=== PATIENT | female | born 1985 | race Caucasian/White ===

== ENCOUNTER 2021-04-25 03:50 | Inpatient (IN) | payer OTHER ==
[2021-04-25] MEDS ORDERED: ELECTROLYTE-148 SOLN 500 ML IV ONE (05:30)
[2021-04-25] MEDS ORDERED: CITRIC ACID/SODIUM CITRATE 30 ML UNIT-DOSE CUP PO ONE (05:30)
[2021-04-25 06:06] LABS: BASO % 0.2 % (0-2.0); EOS % 0.7 % (0-4.5); HEMATOCRIT 33.2 % (32.4-45.2); HEMOGLOBIN 11.3 GM/dL (10.7-15.3); LYMPH % 17.7 % (8-40); MCH 31.5 pg (25.7-33.7); MEAN CELL VOLUME 92.6 fl (80-96); MEAN PLT VOLUME 9.7 fl (7.5-11.1); NEUT % 76.4 % (42.8-82.8); PLATELET COUNT 212 10^3/uL (134-434); RBC 3.59 M/mm3 (3.60-5.2); RDW 13.1 % (11.6-15.6); WHITE BLOOD COUNT 11.6 K/mm3 (4.0-10.0)
[2021-04-25] MEDS ORDERED: OXYTOCIN 20 UNITS in 0.9% NS 20 UNIT/1,000 ML INFUS.BAG IV ONE (06:10)
[2021-04-25] MEDS ORDERED: ceFAZolin SODIUM 1 GM VIAL ONE (06:10)
[2021-04-25] MEDS ORDERED: OXYTOCIN 10 UNITS/ML VIAL ONE (06:11)
[2021-04-25] MEDS ORDERED: morphine SULFATE/PF 1 MG/2 ML (2cc Syringe - QUVA) ONE (06:11)
[2021-04-25] MEDS ORDERED: KETOROLAC TROMETHAMINE 30 MG/1 ML VIAL ONE (06:11)
[2021-04-25] MEDS ORDERED: PHENYLEPHRINE HCL 10 MG/1 ML SINGLE DOSE VIAL ONE (06:12)
[2021-04-25 06:13] LABS: INR 0.86 (0.83-1.09); PROTHROMBIN TIME (PATIENT) 9.9 SEC (9.7-13.0)
[2021-04-25 06:15] LABS: ACTIVATED PTT 25.3 SECONDS (25.2-36.5)
[2021-04-25 06:27] LABS: CALCIUM 8.1 mg/dL (8.5-10.1)
[2021-04-25 06:28] LABS: BLOOD UREA NITROGEN 16.8 mg/dL (7-18)
[2021-04-25 06:32] LABS: CREATININE 0.6 mg/dL (0.55-1.3)
[2021-04-25 06:58] VITALS: BMI 25.8
[2021-04-25] MEDS ORDERED: ONDANSETRON 4 MG/2 ML VIAL IVPUSH PRN (07:35)
[2021-04-25 07:38] LABS: CORD HCO3 24.4 mmHg (20-29); CORD PCO2 47.3 mmHg (30-78); CORD pH 7.331 (7.14-7.44)
[2021-04-25 07:38] LABS: HIV INTERPRETATION NEGATIVE (NEGATIVE)
[2021-04-25 07:41] LABS: CORD HCO3 23.9 mmHg (20-29); CORD PCO2 52.8 mmHg (30-78); CORD pH 7.274 (7.14-7.44)
[2021-04-25] MEDS ORDERED: BENZOCAINE 28 GM HEMORRHOIDAL OINTMENT TP PRN (07:49)
[2021-04-25] MEDS ORDERED: ACETAMINOPHEN 325 MG TABLET (FP) PO PRN (07:49)
[2021-04-25] MEDS ORDERED: METHYLERGONOVINE MALEATE 0.2 MG/1 ML AMP IM PRN (07:49)
[2021-04-25] MEDS ORDERED: SENNOSIDES/DOCUSATE COMBO (SENNA PLUS) TABLET (UD) PO PRN (07:49)
[2021-04-25] MEDS ORDERED: BENZOCAINE 20% 57 GM BOTTLE TP PRN (07:49)
[2021-04-25] MEDS: ELECTROLYTE-148 SOLN 1,000 ML IV SCH (09:04)
[2021-04-25] MEDS ORDERED: IBUPROFEN 800 MG/8 ML IJ IVPB ONE (09:08)
[2021-04-25] MEDS: IBUPROFEN 800 MG/8 ML IJ IVPB PRN (09:15)
[2021-04-25] MEDS: OXYTOCIN 20 UNITS in 0.9% NS 20 UNIT/1,000 ML INFUS.BAG IV SCH ×2 (13:15→19:00)
[2021-04-25] MEDS: IBUPROFEN 600 MG TABLET (FP) PO PRN (17:06)
[2021-04-25] MEDS ORDERED: oxyCODONE HCL 5 MG TABLET PO PRN ×2 (19:49)
[2021-04-26] MEDS: IBUPROFEN 800 MG/8 ML IJ IVPB PRN (00:36)
[2021-04-26] MEDS: IBUPROFEN 600 MG TABLET (FP) PO PRN ×2 (00:51→20:10)
[2021-04-26] MEDS: SIMETHICONE 80 MG TAB.CHEW (FP) PO PRN (00:51)
[2021-04-26] MEDS: LEVOTHYROXINE NA 112 MCG TABLET (FP) PO SCH (06:23)
[2021-04-26] MEDS ORDERED: BISACODYL 10 MG SUPP.RECT RC PRN (07:49)
[2021-04-26 09:25] LABS: BASO % 0.4 % (0-2.0); EOS % 1.4 % (0-4.5); HEMATOCRIT 30.7 % (32.4-45.2); HEMOGLOBIN 10.6 GM/dL (10.7-15.3); LYMPH % 13.3 % (8-40); MCH 32.4 pg (25.7-33.7); MCHC 34.6 g/dl (32.0-36.0); MEAN CELL VOLUME 93.7 fl (80-96); MEAN PLT VOLUME 8.9 fl (7.5-11.1); MONO % 3.3 % (3.8-10.2); NEUT % 81.6 % (42.8-82.8); PLATELET COUNT 190 10^3/uL (134-434); RBC 3.28 M/mm3 (3.60-5.2); RDW 13.1 % (11.6-15.6); WHITE BLOOD COUNT 9.8 K/mm3 (4.0-10.0)
[2021-04-27] MEDS: LEVOTHYROXINE NA 112 MCG TABLET (FP) PO SCH (06:44)
[2021-04-27] MEDS: IBUPROFEN 600 MG TABLET (FP) PO PRN ×2 (11:01→20:11)
[2021-04-27] MEDS: SIMETHICONE 80 MG TAB.CHEW (FP) PO PRN ×2 (11:02→20:12)
[2021-04-28] MEDS: LEVOTHYROXINE NA 112 MCG TABLET (FP) PO SCH (06:33)
[2021-04-28] MEDS: ELECTROLYTE-148 SOLN 1,000 ML IV SCH (07:11)
[2021-04-28 07:19] LABS: BASO % 0.4 % (0-2.0); EOS % 3.5 % (0-4.5); HEMATOCRIT 29.8 % (32.4-45.2); HEMOGLOBIN 10.1 GM/dL (10.7-15.3); LYMPH % 27.5 % (8-40); MCH 32.2 pg (25.7-33.7); MCHC 34.1 g/dl (32.0-36.0); MEAN CELL VOLUME 94.7 fl (80-96); MEAN PLT VOLUME 8.8 fl (7.5-11.1); MONO % 5.3 % (3.8-10.2); NEUT % 63.3 % (42.8-82.8); PLATELET COUNT 206 10^3/uL (134-434); RBC 3.14 M/mm3 (3.60-5.2); RDW 13.3 % (11.6-15.6); WHITE BLOOD COUNT 7.9 K/mm3 (4.0-10.0)
[2021-04-28 09:13] VITALS: BP 113/71; PULSE 73; TEMP 97.3
[2021-04-28] MEDS: IBUPROFEN 600 MG TABLET (FP) PO PRN (09:24)
[2021-04-28] MEDS: SIMETHICONE 80 MG TAB.CHEW (FP) PO PRN (09:24)
== END 2021-04-28 13:25 | disposition home or self-care (01) | DRG 785 ==
LOC: JDEL 03:50 → JLDR 05:13 → J3W 09:35
PROVIDERS: ADMIT Obstetrics & Gynecology; ATTEND Obstetrics & Gynecology
PROC: 10D00Z1 Extraction of Products of Conception, Low, Open Approach (ICD-10-PCS; principal; 2021-04-25)
PROC: 0UB50ZZ Excision of Right Fallopian Tube, Open Approach (ICD-10-PCS; 2021-04-25)
DX: O82 Encounter for cesarean delivery without indication (principal); N83.8 Other noninflammatory disorders of ovary, fallopian tube and broad ligament; O99.284 Endocrine, nutritional and metabolic diseases complicating childbirth; E03.9 Hypothyroidism, unspecified; Z3A.37 37 weeks gestation of pregnancy; Z37.0 Single live birth
CPT/HCPCS: 36415; 36600; 80048; 82803; 85025; 85610; 85730; 86780; 86850; 86870; 86900; 86901; 86902; 87389; 88304-TC; 88307-TC; C9803-CS; U0003; U0005